=== PATIENT | female | born 1970 | race Caucasian/White ===

== ENCOUNTER 2017-01-28 20:25 | Emergency (ER) | payer OTHER, MEDICARE ==
[~2017-01-28] VITALS: Ht 177.8 cm; Wt 103.2 kg
[2017-01-28 20:31] VITALS: BP 115/70; PULSE 87; RESP 16; TEMP 97.6; O2SAT 97
[2017-01-28] MEDS ORDERED: LIPI40TA PO (21:11)
[2017-01-28] MEDS ORDERED: PROZ40CA PO (21:11)
[2017-01-28] MEDS ORDERED: NEUR600T PO (21:11)
[2017-01-28] MEDS ORDERED: TOPI1TAB36 PO (21:12)
[2017-01-28] MEDS ORDERED: CYCL1TAB29 PO (21:13)
--- NOTE | 2017-01-28 22:00 | PD ---
HPI Chief Complaint: Fall Time Seen by Provider: 21:14 Travel History International Travel<30 days: No Contact w/Intl Traveler<30days: No Traveled to known affect area: No History of Present Illness HPI Patient is a 46-year-old female presents emergency department for evaluation of left flank pain. Patient states she had a trip and fall 4 days ago. Her family member was putting up a dog gate's to control the dog she tripped over the dog gate. She states she fell on her left side. She is noticed a bruise in the left lower abdomen more over the iliac crests and the pain was gradually worsening and she has mild nausea this morning so her significant other told her to come in and be seen. She denies any vaginal bleeding vaginal discharge hematuria emesis hematemesis. She states her pain is fairly mild currently. She would like to be reassured and go home. PFSH Past Medical History Arthritis: Yes Depression: Yes High Cholesterol: Yes Diminished Hearing: No GERD: Yes Medical other: Yes (Spinal stenosis with narrowing, fatty liver) Migraines: Yes Seizures: Yes Triglycerides - High: Yes Tetanus Vaccination: < 5 Years Influenza Vaccination: Yes ?: Not Menopausal: Yes Past Surgical History Appendectomy: Yes Cholecystectomy: Yes Hysterectomy: Yes (Partial, oopherectomy ) Other Surgery: Yes (Back surgery with [place] rods and screws) Social History Alcohol Use: No Tobacco Use: No Substance Use: Yes (Marijuana occasionally) Allergies-Medications (Allergen,Severity, Reaction): Coded Allergies: Baclofen (Verified Allergy, Severe, SWEATING, 01/28/17) Compazine (Verified Allergy, Severe, Itching, 01/28/17) Reported Meds & Prescriptions Reported Meds & Active Scripts Active Reported Flexeril (Cyclobenzaprine HCl) 10 Mg Tab 10 Mg PO TID PRN Topiramate 50 Mg Tab 100 Mg PO DAILY Prozac (Fluoxetine HCl) 40 Mg Cap 60 Mg PO DAILY Neurontin (Gabapentin) 600 Mg Tab 600 Mg PO QID Lipitor (Atorvastatin Calcium) 40 Mg Tab 40 Mg PO HS Review of Systems Except as stated in HPI: all other systems reviewed are Neg Physical Exam Narrative GENERAL: Well-developed well-nourished, overweight but in no obvious distress. SKIN: There is a ecchymosis proximally sober dollar sized over the iliac crest just anterior to the midaxillary line. No Morales Wallace sign, no Benny sign. HEAD: Atraumatic. Normocephalic. EYES: Pupils equal and round. No scleral icterus. No injection or drainage. ENT: No nasal bleeding or discharge. Mucous membranes pink and moist. NECK: Trachea midline. No JVD. CARDIOVASCULAR: Regular rate and rhythm. No murmur appreciated. RESPIRATORY: No accessory muscle use. Clear to auscultation. Breath sounds equal bilaterally. GASTROINTESTINAL: Abdomen soft, non-tender, nondistended. Hepatic and splenic margins not palpable. No rebound no percussive tenderness. MUSCULOSKELETAL: No obvious deformities. No clubbing. No cyanosis. No edema. NEUROLOGICAL: Awake and alert. No obvious cranial nerve deficits. Motor grossly within normal limits. Normal speech. PSYCHIATRIC: Appropriate mood and affect; insight and judgment normal. Data Data Last Documented VS Vital Signs Date Time Temp Pulse Resp B/P Pulse Ox O2 Delivery O2 Flow Rate FiO2 01/28/17 22:03 82 18 114/69 98 Room Air 01/28/17 20:31 97.6 Orders Ed Poc Ultrasound (01/28/17 ) [facility] Medical Decision Making Medical Screen Exam Complete: Yes Emergency Medical Condition: Yes Differential Diagnosis Flank hematoma, flank ecchymosis, spleen injury unlikely, kidney injury unlikely , internal injury unlikely. Bony injury unlikely. Narrative Course Patient is a 46-year-old female presents emergency department 4 days after a ground-level fall. She does have a small bruise as described above. She is a into the emergency department and does not have any signs of peritonitis. Bedside ultrasound was performed which is reassuring. Initial consideration given the UA and urine test with the patient would like to leave. I think these are low yield test anyways. The patient is remote from her injury and I don't think there is any indication for advanced workup at this time. Discussed signs symptoms that should prompt emergent return to the ER on symptomatic control at home. She was offered pain medicine declined. She was discharged to her own recognizance ambulated from the emergency department in no distress. Diagnosis Primary Impression: Left flank pain Patient Instructions: General Instructions, RICE Therapy (ED) Disposition: 01 DISCHARGE HOME Condition: Stable Adolfo Reveles MD Jan 28, 2017 22:00
[2017-01-28 22:03] VITALS: BP 114/69; PULSE 82; RESP 18; O2SAT 98
== END 2017-01-28 22:21 | disposition home or self-care (01) ==
LOC: PHED 20:25
DX: R10.9 Unspecified abdominal pain (principal); S30.1XXA Contusion of abdominal wall, initial encounter; W18.09XA Striking against other object with subsequent fall, initial encounter; Y93.89 Activity, other specified